=== PATIENT | female | born 1960 | race Caucasian/White ===

== ENCOUNTER 2017-12-01 16:25 | Emergency (ER) | payer OTHER ==
[~2017-12-01] VITALS: Ht 149.9 cm; Wt 95.0 kg
[~2017-12-01 16:25] MED LIST: ADULT LOW DOSE81 MG PO; ANUCORT-HC25 MG PR; BACTRIM,SEPT1 TABLET PO; BUMETANIDE1 MG PO; CARAFATE100 MG/ML PO; CIPRO500 MG PO; COLACE100 MG PO; DILAUDID2 MG PO; FLAGYL500 MG PO; FLONASE16 G1 BOTH NARES; FUROSEMIDE80 MG PO; GENERLAC10 GM/15 M PO; IBUPROFEN800 MG PO; K-DUR20 MEQ PO; KLONOPIN0.5 M1 PO; LANTUS (UNITS)1 UNIT IV; LANTUS 10100 UNITS/ SC; LANTUS 3 M100 UNITS1 SC; LASIX80 MG PO; LIDODERM 5% P1 PATCH TD; LIPITOR40 MG PO; LISINOPRIL20 MG PO; LOW DOSE ASPIRI81 M1 PO; MACROBID100 MG PO; MOTRIN400 MG PO; NAPROSYN500 MG PO; NAPROXEN500 MG PO; NASONEX17 GM BOTH NARES; NEURONTIN800 MG PO; NEXIUM40 MG PO; NORCO 5/3251 TABLET PO; PERCOCET 5/31 TABLET PO; PHENERGAN-CODE120 ML PO; PLAVIX75 MG PO; PREDNISONE20 MG PO; PREDNISONE50 MG PO; PROVENTIL,2.5 MG/3 M IH; ST. JOSEPH ASPI81 MG PO; TAMIFLU75 MG PO; TOPROL XL50 MG PO; TRAMADOL HCL50 MG PO; TYLENOL EXTRA500 MG PO; ULTRAM50 MG PO; VALIUM5 MG PO; VENTOLIN HFA18 GM IH; ZESTRIL,PRINIVI20 MG PO; ZESTRIL10 MG PO; ZITHROMAX Z-PA250 MG PO; ZOFRAN4 MG PO
[2017-12-01 17:30] LABS: HEMATOCRIT 39.8 % (36.0-46.0); HEMOGLOBIN 13.8 G/DL (11.9-15.5); MCH 29.1 PG (29.0-34.0); MCHC 34.7 G/DL (30.0-36.0); PLATELET COUNT 256 K/uL (156-360); RBC DIS.WIDTH-CV 13.2 % (11.8-14.6); RBC DIS.WIDTH-SD 40.4 % (39-53); RED BLOOD COUNT 4.74 M/uL (3.80-5.20); WHITE BLOOD COUNT 11.8 K/uL (4.1-10.2)
[2017-12-01 17:40] LABS: ALBUMIN 3.9 g/dL (3.2-4.8)
[2017-12-01 17:41] LABS: CHLORIDE 98 mEq/L (99-109); POTASSIUM 4.6 mEq/L (3.7-5.4); SODIUM 132 mEq/L (136-147)
[2017-12-01 17:43] LABS: GLUCOSE 395 mg/dL (70-99); TOTAL PROTEIN 7.3 g/dL (6.4-8.3)
[2017-12-01 17:45] LABS: TOTAL BILIRUBIN 0.4 mg/dL (0.0-1.0)
[2017-12-01 17:46] LABS: ALKALINE PHOSPHATASE 130 IU/L (3-129)
[2017-12-01 17:47] LABS: CREATININE 1.2 mg/dL (0.6-1.3); GFR ESTIMATE (CALCULATED) 50 mL/min/
[2017-12-01 17:48] LABS: AST (GOT) 10 IU/L (2-34); UREA NITROGEN (BUN) 27 mg/dL (9-23)
[2017-12-01 17:49] LABS: ALT (GPT) 8 IU/L (3-49)
[2017-12-01 18:39] LABS: APPEARANCE SL.HAZY ((CLEAR)); BILIRUBIN NEGATIVE; BLOOD NEGATIVE; COLOR YELLOW ((YELLOW)); GLUCOSE (STRIP) >=500; KETONES NEGATIVE; LEUKOCYTES SMALL; NITRITE NEGATIVE; PROTEIN (STRIP) NEGATIVE; SPECIFIC GRAVITY 1.016 (1.000-1.030)
[2017-12-01 18:52] LABS: BACTERIA RARE /HPF; EPITHELIAL CELLS RARE /HPF; HYALINE CASTS 0-5 /LPF; MUCUS TRACE /LPF; RED BLOOD CELLS 0-5 /HPF (0-5); UCUL ADDED? YES; WHITE BLOOD CELLS 15-20 /HPF (0-5)
[2017-12-01] MEDS ORDERED: ZOFRAN ODT4 MG PO (19:59)
[2017-12-01 22:17] VITALS: BP 99/73
== END 2017-12-01 22:18 | disposition home or self-care (01) ==
LOC: EME 16:25
PROVIDERS: Nurse Practitioner Family
DX: E11.65 Type 2 diabetes mellitus with hyperglycemia (principal); R14.0 Abdominal distension (gaseous); I11.0 Hypertensive heart disease with heart failure; I50.9 Heart failure, unspecified; J44.9 Chronic obstructive pulmonary disease, unspecified; F41.9 Anxiety disorder, unspecified; I25.2 Old myocardial infarction; Z95.1 Presence of aortocoronary bypass graft; Z95.810 Presence of automatic (implantable) cardiac defibrillator; F17.200 Nicotine dependence, unspecified, uncomplicated; Z79.4 Long term (current) use of insulin; Z79.82 Long term (current) use of aspirin; Z88.1 Allergy status to other antibiotic agents; Z88.0 Allergy status to penicillin
CPT/HCPCS: 74177; 80053; 81003; 82948; 85027; 87077; 87086; 87186; 99281; 99284; J2405; J7030

== ENCOUNTER 2017-12-27 12:17 | Observation (INO) | payer OTHER ==
[~2017-12-27] VITALS: Ht 162.6 cm; Wt 97.1 kg
[~2017-12-27 12:17] MED LIST changes: -LISINOPRIL20 MG PO; +LISINOPRIL5 MG PO; +ZOFRAN ODT4 MG PO
[2017-12-27 13:18] LABS: BASOPHIL (%) 0.5 % (0-1); BASOPHIL COUNT 0.1 K/uL (0-0.1); EOSINOPHIL (%) 1.9 % (0-5); EOSINOPHIL COUNT 0.2 K/uL (0-0.3); HEMATOCRIT 42.9 % (36.0-46.0); IMMATURE GRANULOCYTE (%) 0.4 % (0.0-0.7); LYMPHOCYTE (%) 19.4 % (15-42); LYMPHOCYTE COUNT 2.5 K/uL (1.0-2.8); MCH 28.8 PG (29.0-34.0); MONOCYTE (%) 4.9 % (3-12); MONOCYTE COUNT 0.6 K/uL (0-0.8); NEUTROPHIL (%) 72.9 % (45-76); NEUTROPHIL COUNT 9.4 K/uL (1.8-6.4); RBC DIS.WIDTH-CV 12.8 % (11.8-14.6); RBC DIS.WIDTH-SD 38.6 % (39-53); RED BLOOD COUNT 5.21 M/uL (3.80-5.20); WHITE BLOOD COUNT 12.9 K/uL (4.1-10.2)
[2017-12-27 13:23] LABS: MCV 82.3 FL (83-99); PLATELET COUNT 206 K/uL (156-360)
[2017-12-27 13:30] LABS: CHLORIDE 94 mEq/L (99-109); POTASSIUM 5.7 mEq/L (3.7-5.4); SODIUM 128 mEq/L (136-147)
[2017-12-27 13:31] LABS: MAGNESIUM 2.1 mg/dL (1.3-2.7)
[2017-12-27 13:34] LABS: INTER. NORMALIZED RATIO 1.1
[2017-12-27 13:36] LABS: CREATININE 1.8 mg/dL (0.6-1.3); GFR ESTIMATE (CALCULATED) 31 mL/min/; GLUCOSE 612 mg/dL (70-99)
[2017-12-27 13:37] LABS: UREA NITROGEN (BUN) 33 mg/dL (9-23)
[2017-12-27 13:40] LABS: TROP-I INTERPRETATION NEGATIVE; TROPONIN-I 0.02 ng/mL (0.0-0.30)
[2017-12-27 16:18] LABS: HEMATOCRIT 40.6 % (36.0-46.0); HEMOGLOBIN 14.3 G/DL (11.9-15.5); MCH 29.1 PG (29.0-34.0); MCHC 35.2 G/DL (30.0-36.0); MCV 82.7 FL (83-99); PLATELET COUNT 191 K/uL (156-360); RBC DIS.WIDTH-CV 12.8 % (11.8-14.6); RBC DIS.WIDTH-SD 38.8 % (39-53); RED BLOOD COUNT 4.91 M/uL (3.80-5.20); WHITE BLOOD COUNT 12.8 K/uL (4.1-10.2)
[2017-12-27 16:30] LABS: CHLORIDE 102 mEq/L (99-109); SODIUM 131 mEq/L (136-147)
[2017-12-27 16:32] LABS: GLUCOSE 388 mg/dL (70-99)
[2017-12-27 16:35] LABS: CREATININE 1.5 mg/dL (0.6-1.3); GFR ESTIMATE (CALCULATED) 38 mL/min/
[2017-12-27 16:36] LABS: UREA NITROGEN (BUN) 30 mg/dL (9-23)
[2017-12-27 16:37] LABS: POTASSIUM 6.5 mEq/L (3.7-5.4)
[2017-12-27] MEDS ORDERED: BUMEX1 MG PO ×2 (17:19)
[2017-12-27] MEDS ORDERED: LEVEMIR FL100 UNIT/1 SC (17:22)
[2017-12-27] MEDS ORDERED: SYNTHROID25 MCG PO (17:23)
[2017-12-27] MEDS ORDERED: CEFDINIR300 MG PO (17:23)
[2017-12-27] MEDS ORDERED: IMDUR30 MG PO (17:24)
[2017-12-27] MEDS ORDERED: ALDACTONE25 MG PO (17:25)
[2017-12-27] MEDS ORDERED: VITAMIN D31000 UNIT PO (17:25)
[2017-12-27] MEDS ORDERED: VITAMIN C250 MG PO (17:26)
[2017-12-27] MEDS ORDERED: MOVANTIK12.5 MG PO (17:26)
[2017-12-27] MEDS ORDERED: MIRALAX255 GM PO (17:28)
[2017-12-27] MEDS ORDERED: OXYCODONE HCL10 MG PO (17:29)
[2017-12-27 17:37] VITALS: BP 103/55
[2017-12-27 18:35] LABS: TROP-I INTERPRETATION NEGATIVE; TROPONIN-I 0.13 ng/mL (0.0-0.30)
[2017-12-27 19:20] VITALS: BP 105/57
[2017-12-27 21:44] LABS: HEMATOCRIT 40.5 % (36.0-46.0); HEMOGLOBIN 13.7 G/DL (11.9-15.5); MCH 28.1 PG (29.0-34.0); MCHC 33.8 G/DL (30.0-36.0); PLATELET COUNT 207 K/uL (156-360); RBC DIS.WIDTH-CV 12.9 % (11.8-14.6); RBC DIS.WIDTH-SD 39.1 % (39-53); RED BLOOD COUNT 4.88 M/uL (3.80-5.20); WHITE BLOOD COUNT 11.5 K/uL (4.1-10.2)
[2017-12-27 22:07] LABS: CHLORIDE 96 MEQ/L (99-109); CREATININE 1.8 MG/DL (0.6-1.3); GFR ESTIMATE (CALCULATED) 31 mL/min/; SODIUM 126 MEQ/L (136-147); UREA NITROGEN (BUN) 30 mg/dL (9-23)
[2017-12-27 22:08] LABS: GLUCOSE 508 mg/dL (70-99)
[2017-12-27 23:15] VITALS: BP 114/63
[2017-12-28 00:07] LABS: APPEARANCE CLEAR ((CLEAR)); BILIRUBIN NEGATIVE; BLOOD NEGATIVE; COLOR STRAW ((YELLOW)); GLUCOSE (STRIP) >=500; KETONES NEGATIVE; LEUKOCYTES NEGATIVE; NITRITE NEGATIVE; PROTEIN (STRIP) NEGATIVE; UCUL ADDED? NO; UROBILINOGEN 0.2 MG/DL (0.2-1.0)
[2017-12-28 00:50] LABS: BENZODIAZEPINES, URINE SCREEN Negative (200 ng/mL)
[2017-12-28 01:21] LABS: TROP-I INTERPRETATION NEGATIVE; TROPONIN-I 0.16 ng/mL (0.0-0.30)
[2017-12-28 03:37] VITALS: BP 95/52
[2017-12-28 05:35] LABS: HEMATOCRIT 39.4 % (36.0-46.0); HEMOGLOBIN 13.1 G/DL (11.9-15.5); MCH 27.6 PG (29.0-34.0); MCHC 33.2 G/DL (30.0-36.0); MCV 83.1 FL (83-99); PLATELET COUNT 193 K/uL (156-360); RBC DIS.WIDTH-CV 12.9 % (11.8-14.6); RED BLOOD COUNT 4.74 M/uL (3.80-5.20); WHITE BLOOD COUNT 10.8 K/uL (4.1-10.2)
[2017-12-28 06:01] LABS: ALBUMIN 3.3 G/DL (3.2-4.8); ALKALINE PHOSPHATASE 91 IU/L (3-129); ALT (GPT) 16 IU/L (3-49); AST (GOT) 15 IU/L (2-34); CHLORIDE 105 MEQ/L (99-109); TOTAL BILIRUBIN 0.7 MG/DL (0.0-1.0); TOTAL PROTEIN 6.1 G/DL (6.4-8.3); UREA NITROGEN (BUN) 28 mg/dL (9-23)
[2017-12-28 06:02] LABS: CREATININE 1.3 MG/DL (0.6-1.3); GFR ESTIMATE (CALCULATED) 45 mL/min/; GLUCOSE 94 mg/dL (70-99); POTASSIUM 3.9 MEQ/L (3.7-5.4); SODIUM 133 MEQ/L (136-147)
[2017-12-28 07:58] VITALS: BP 101/55
[2017-12-28 11:38] VITALS: BP 126/64
[2017-12-28 15:55] VITALS: BP 128/62
== END 2017-12-28 18:17 | disposition left against medical advice (07) ==
LOC: EME 12:17 → 3EAST 16:03 → EDOF 16:03 → ENRESERV 16:07 → 3EAST 17:37
PROVIDERS: Emergency Medicine; Internal Medicine
DX: E11.65 Type 2 diabetes mellitus with hyperglycemia (principal); E87.5 Hyperkalemia; N17.9 Acute kidney failure, unspecified; K02.9 Dental caries, unspecified; E11.22 Type 2 diabetes mellitus with diabetic chronic kidney disease; I13.0 Hypertensive heart and chronic kidney disease with heart failure and stage 1 through stage 4 chronic kidney disease, or unspecified chronic kidney disease; I50.9 Heart failure, unspecified; N18.3 Chronic kidney disease, stage 3 (moderate); F17.200 Nicotine dependence, unspecified, uncomplicated; J43.9 Emphysema, unspecified; E11.51 Type 2 diabetes mellitus with diabetic peripheral angiopathy without gangrene; Z95.0 Presence of cardiac pacemaker; N39.0 Urinary tract infection, site not specified; R94.31 Abnormal electrocardiogram [ECG] [EKG]; I25.10 Atherosclerotic heart disease of native coronary artery without angina pectoris; Z95.1 Presence of aortocoronary bypass graft; I25.2 Old myocardial infarction; E87.1 Hypo-osmolality and hyponatremia; I95.9 Hypotension, unspecified; Z79.4 Long term (current) use of insulin; E87.3 Alkalosis; E86.0 Dehydration; Z89.411 Acquired absence of right great toe; Z88.0 Allergy status to penicillin; Z88.1 Allergy status to other antibiotic agents; Z82.49 Family history of ischemic heart disease and other diseases of the circulatory system; Z83.3 Family history of diabetes mellitus
CPT/HCPCS: 71045; 80048; 80048 91; 80053; 80306 90; 81003; 82010; 82803; 82948; 83735; 84132 91; 84484; 85025; 85027; 85610; 85730; 87086; 93005; 99281; 99285; G0378; J1644; J1815; J1940; J7030

== ENCOUNTER 2018-03-18 20:41 | Emergency (ER) | payer OTHER ==
[~2018-03-18] VITALS: Ht 162.6 cm; Wt 97.3 kg
[~2018-03-18 20:41] MED LIST changes: +ALDACTONE25 MG PO; +BUMEX1 MG PO; +CEFDINIR300 MG PO; +IMDUR30 MG PO; +LEVEMIR FL100 UNIT/1 SC; +MIRALAX255 GM PO; +MOVANTIK12.5 MG PO; +OXYCODONE HCL10 MG PO; +SYNTHROID25 MCG PO; +VITAMIN C250 MG PO; +VITAMIN D31000 UNIT PO
[2018-03-18 23:45] VITALS: BP 129/76
== END 2018-03-18 23:59 | disposition home or self-care (01) ==
LOC: EME 20:41
PROC: 2W3QX1Z Immobilization of Right Lower Leg using Splint (ICD-10-PCS; principal; 2018-03-18)
DX: Z47.89 Encounter for other orthopedic aftercare (principal); R20.0 Anesthesia of skin; J44.9 Chronic obstructive pulmonary disease, unspecified; E11.9 Type 2 diabetes mellitus without complications; I11.0 Hypertensive heart disease with heart failure; I50.9 Heart failure, unspecified; I25.2 Old myocardial infarction; F41.9 Anxiety disorder, unspecified; F17.200 Nicotine dependence, unspecified, uncomplicated; Z95.810 Presence of automatic (implantable) cardiac defibrillator; Z95.1 Presence of aortocoronary bypass graft; Z79.82 Long term (current) use of aspirin; Z79.4 Long term (current) use of insulin; Z88.1 Allergy status to other antibiotic agents; Z88.0 Allergy status to penicillin
CPT/HCPCS: 99281; 99284